=== PATIENT | male | born 1990 | race American Indian/Alaskan Native ===

== ENCOUNTER 2016-10-06 23:21 | Observation (INO) | payer SELFPAY ==
[2016-10-06 23:25] VITALS: BMI 24.3
--- NOTE | 2016-10-07 00:23 | C.PDOC ---
History Of Present Illness 26 year old male brought to the ER by [facility] after [place] claiming suicidal ideation with no intent. Patient was in police custody for 5 hours prior to ED. Has not verbalized any complaints at this time. Time Seen by Provider: 10/06/16 23:24 Chief Complaint (Nursing): Substance Abuse History Per: Other ([facility]) History/Exam Limitations: no limitations Onset/Duration Of Symptoms: Hrs Current Symptoms Are (Timing): Still Present Suicide/Self Injury Attempted (Context): None Modifying Factor(s): None Associated Symptoms: Suicidal Thoughts. denies: Depression, Suicidal Plan Involuntary Hold By: None Recent travel outside of the [place]: No Past Medical History Reviewed: Historical Data, Nursing Documentation, Vital Signs Vital Signs: Last Vital Signs Temp 98 F 10/06/16 23:25 Pulse 68 10/06/16 23:25 Resp 20 10/06/16 23:25 BP 159/51 H 10/06/16 23:25 Pulse Ox 100 10/07/16 00:28 - Medical History PMH: No Chronic Diseases Surgical History: No Surg Hx Family History: States: Unknown Family Hx - Social History Hx Alcohol Use: Yes Hx Substance Use: Yes - Immunization History Hx Tetanus Toxoid Vaccination: No Hx Influenza Vaccination: No Hx Pneumococcal Vaccination: No Review Of Systems Review Of Systems: ROS cannot be obtained secondary to pt's inabilty to answer questions. Physical Exam - Physical Exam Appears: Non-toxic, No Acute Distress, Other (Awake, bizarre, internally motivated, healthy thin black male) Skin: Normal Color, Warm, Dry Head: Atraumatic, Normacephalic Eye(s): bilateral: Other (Pin point pupils) Oral Mucosa: Moist Chest: Symmetrical, No Tenderness Cardiovascular: Rhythm Regular, No Murmur Respiratory: Normal Breath Sounds, No Rales, No Rhonchi, No Wheezing Gastrointestinal/Abdominal: Soft, No Tenderness Neurological/Psych: Oriented x3, Normal Speech, Normal Cognition ED Course And Treatment - Laboratory Results Result Diagrams: 10/07/16 00:21 10/07/16 00:21 Lab Interpretation: Normal O2 Sat by Pulse Oximetry: 100 (Room air) Pulse Ox Interpretation: Normal Progress Note: Blood work and urinalysis ordered. Patient does not follow commands and is not verbalizing; discussed with Crisis who agreed to restrain and sedate for his own safety and they will evaluate him in the morning. Ativan and geodon administered. Reevaluation Time: 00:42 Reassessment Condition: Improved (sleeping comfortably on 1:1 obs) Medical Decision Making Medical Decision Makin: A/P: probable psych vs substance abuse UDS pending discussed with Crisis, pending eval when sober d/w Overnight doc, signed over Disposition - Disposition Disposition Time: 01:00 Condition: GOOD Forms: [facility] (French) - Clinical Impression Clinical Impression: Acute delirium - Scribe Statement The provider has reviewed the documentation as recorded by the Scribe Mikey Paulino All medical record entries made by the Scribe were at my direction and personally dictated by me. I have reviewed the chart and agree that the record accurately reflects my personal performance of the history, physical exam, medical decision making, and the department course for this patient. I have also personally directed, reviewed, and agree with the discharge instructions and disposition. Physician Patient Turnover Patient Signed Over To: Lina Samuel Handoff Comments: dispo when sober per Crisis Recommendations.
[2016-10-07 00:27] LABS: BASO % 0.2 % (0.0-2.0); EOS % 0.2 % (0.0-4.0); HEMOGLOBIN 12.1 g/dL (12.0-18.0); LYMPH # 1.4 K/uL (1.0-4.3); LYMPH % 16.2 % (20.0-40.0); MEAN CELL VOLUME 94.6 fL (80.0-94.0); MEAN CORPUSCULAR HEMOGLOBIN 31.6 pg (27.0-31.0); MEAN CORPUSCULAR HGB CONC 33.4 g/dL (33.0-37.0); MEAN PLATELET VOLUME 10.3 fL (7.2-11.7); MONO # 0.6 K/uL (0.0-0.8); MONO % 6.4 % (0.0-10.0); NEUT # 6.8 K/uL (1.8-7.0); RBC 3.83 Mil/uL (4.40-5.90); RED CELL DISTRIBUTION WIDTH 14.4 % (11.5-14.5); WHITE BLOOD COUNT 8.8 K/uL (4.8-10.8)
[2016-10-07 00:35] LABS: GFR AFRICAN-AMERICAN > 60; GFR NON-AFRICAN AMERICAN > 60; SALICYLATE < 1.0 mg/dL 1
[2016-10-07 00:36] LABS: ALB/GLOB RATIO 1.4 (1.0-2.1); ALT/SGPT 45 U/L (21-72); AST/SGOT 30 U/L (17-59); BLOOD UREA NITROGEN 8 mg/dL (9-20); CALCIUM 8.6 mg/dl (8.6-10.4)
[2016-10-07 00:39] LABS: ACETAMINOPHEN < 10.0 ug/mL (10.0-30.0)
[2016-10-07 06:59] LABS: SQUAMOUS EPITHIAL < 1 /hpf (0-5); URINE BILIRUBIN NEGATIVE (NEGATIVE); URINE BLOOD NEGATIVE (NEGATIVE); URINE CLARITY Clear (Clear); URINE COLOR Yellow (YELLOW); URINE GLUCOSE (UA) NORMAL (Normal); URINE HYALINE CAST 0-2 /lpf (0-2); URINE LEUKOCYTE ESTERASE NEG Leu/uL (Negative); URINE NITRATE NEGATIVE (NEGATIVE); URINE PROTEIN NEGATIVE (NEGATIVE); URINE UROBILINOGEN NORMAL mg/dL (0.2-1.0)
[2016-10-07 07:06] LABS: BENZODIAZEPINES, UR NEGATIVE (NEGATIVE)
[2016-10-07 07:08] LABS: BARBITURATES, UR NEGATIVE (NEGATIVE)
[2016-10-07 07:10] LABS: OPIATES, UR NEGATIVE (NEGATIVE)
[2016-10-07 07:11] LABS: PHENCYCLIDINE, UR NEGATIVE (NEGATIVE)
[2016-10-07] MEDS ORDERED: Potassium Chloride 20 mEq/15 ml LIQ UD PO STA (07:18)
[2016-10-07] MEDS ORDERED: Potassium Chloride 20 mEq/15 ml LIQ UD ONE (08:29)
[2016-10-07] MEDS ORDERED: Potassium Chloride 20 mEq ER Tab PO ONE (08:40)
--- NOTE | 2016-10-07 10:32 | RAD ---
HISTORY: psych eval COMPARISON: No prior. FINDINGS: LUNGS: Mild venous congestion. PLEURA: No significant pleural effusion identified, no pneumothorax apparent. CARDIOVASCULAR: Normal. OSSEOUS STRUCTURES: No significant abnormalities. VISUALIZED UPPER ABDOMEN: Normal. OTHER FINDINGS: None. IMPRESSION: Mild venous congestion.
--- NOTE | 2016-10-07 12:45 | PCM.PSYCH ---
Initial Psychiatric Evaluation - Initial Psychiatric Evaluation Chief Complaint (in patient's own words): "I don't know" Current Medications: Active Medications Generic Name Dose Route Start Last Admin Trade Name Freq PRN Reason Stop Dose Admin Lorazepam 1 mg 10/07/16 12:42 Ativan PO Q6H PRN Agitation Risperidone 1 mg 10/07/16 12:45 Risperdal Tab PO DAILY DEMARIO Past Psychiatric History - Past Psychiatric History Pertinent Medical Hx (Current Medical&Sleep Prob, Allergies): Allergies Allergy/AdvReac Type Severity Reaction Status Date / Time No Known Allergies Allergy Verified 10/06/16 23:25 No Known Home Med 10/07/16
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
[2016-10-07 19:27] VITALS: BP 141/83; PULSE 61; RESP 16; TEMP 98.3; O2SAT 98
== END 2016-10-07 19:29 | disposition short-term general hospital (02) ==
LOC: C.ER 23:21 → C.9OBSV 10-07 03:35
PROVIDERS: ADMIT Emergency Medicine; ATTEND Emergency Medicine
DX: F25.1 Schizoaffective disorder, depressive type (principal); F12.90 Cannabis use, unspecified, uncomplicated; G47.00 Insomnia, unspecified; R45.851 Suicidal ideations; Z68.21 Body mass index [BMI] 21.0-21.9, adult
CPT/HCPCS: 71010; 80053; 81001; 82948; 85025; 96372; 99285; G0378; G0480; J2060; J3486